=== PATIENT | male | born 1970 | race Caucasian/White ===

== ENCOUNTER 2020-04-01 13:37 | Emergency (ER) | payer OTHER, BC ==
[2020-04-01] MEDS ORDERED: HYDROmorphone 1 MG/ML 1 ML SYRINGE IVP STA (13:44)
[2020-04-01] MEDS ORDERED: SODIUM CHLORIDE 0.9% 1,000 ML IV STA (13:44)
[2020-04-01] MEDS ORDERED: DIPH,PERTUS(ACELL)TETVAC-LF 0.5 ML VIAL IM ONE (13:44)
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
[2020-04-01 14:07] LABS: Basophils # (A) 0.1 k/uL (0-0.2); Basophils % (A) 2 %; Eosinophils # (A) 0.2 k/uL (0-0.7); Eosinophils % (A) 3 %; HCT 38.6 % (39.0-53.0); HGB 12.3 gm/dL (13.0-17.5); Lymphocytes # (A) 1.9 k/uL (1.0-4.8); Lymphocytes % (A) 30 %; MCH 32.9 pg (25.0-35.0); MCHC 31.9 g/dL (31.0-37.0); MCV 103.3 fL (80.0-100.0); Macrocytosis Slight; Monocytes # (A) 0.3 k/uL (0-1.0); Monocytes % (A) 5 %; Neutrophils # (A) 3.5 k/uL (1.3-7.7); Neutrophils % (A) 57 %; Platelet Count 171 k/uL (150-450); RBC 3.74 m/uL (4.30-5.90); RDW 12.6 % (11.5-15.5); WBC 6.2 k/uL (3.8-10.6)
--- NOTE | 2020-04-01 14:08 | XR ---
EXAMINATION TYPE: XR pelvis AP view DATE OF EXAM: 04/01/2020 COMPARISON: NONE HISTORY: Pain The osseous structures are intact and the joint spaces are preserved. No acute fracture is seen. Vi sualized bowel gas pattern is nonspecific. Postsurgical change overlying the lower lumbar spine. Jameson cifications the pelvis likely vascular. Arthropathy of the hips. IMPRESSION: 1. No acute fracture.
--- NOTE | 2020-04-01 14:09 | XR ---
EXAMINATION TYPE: XR chest 1V portable DATE OF EXAM: 04/01/2020 COMPARISON: NONE HISTORY: Chest pain trauma. TECHNIQUE: Single view FINDINGS: There is no heart failure nor confluent pneumonic infiltrate. There is poor inspiration. Th ere is mild subsegmental atelectasis left lung base. There are chest leads. Bony thorax is intact. IMPRESSION: Poor inspiration. Normal heart.
[2020-04-01 14:14] LABS: Glucose,Whole Blood 127 mg/dL (75-99)
[2020-04-01 14:17] LABS: ALT 133 U/L (4-49); AST 357 U/L (17-59); African American GFR (CKD) >90 (>60 ml/min/1.73 sqM); Albumin 4.1 g/dL (3.5-5.0); Alkaline Phosphatase 57 U/L (38-126); Amylase 71 U/L (30-110); Anion Gap 12 mmol/L; Blood Urea Nitrogen 12 mg/dL (9-20); Calcium 9.2 mg/dL (8.4-10.2); Carbon Dioxide 23 mmol/L (22-30); Chloride 105 mmol/L (98-107); Glucose 139 mg/dL (74-99); Non-African American GFR(CKD) >90 (>60 ml/min/1.73 sqM); Potassium 3.5 mmol/L (3.5-5.1); Sodium 140 mmol/L (137-145); Total Bilirubin 0.8 mg/dL (0.2-1.3); Total Protein 6.6 g/dL (6.3-8.2)
[2020-04-01 14:19] LABS: Alcohol 195 mg/dL; Creatine Kinase 228 U/L (55-170)
[2020-04-01 14:22] LABS: Prothrombin Time 10.1 sec (9.0-12.0)
[2020-04-01 14:28] LABS: Partial Thromboplastin Time 19.4 sec (22.0-30.0)
[2020-04-01 14:33] LABS: Creatine Kinase MB 3.2 ng/mL (0.0-2.4); Troponin I <0.012 ng/mL (0.000-0.034)
[2020-04-01] MEDS ORDERED: DIAZEPAM 5 MG/ML 2 ML INJ IVP STA (14:40)
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
[2020-04-01] MEDS ORDERED: KETAMINE 10 MG/ML 20 ML VIAL IV ONE (15:08)
[2020-04-01] MEDS ORDERED: LIDOCAINE 1%-EPI 1:100,000 20 ML VIAL SQ STA (15:14)
--- NOTE | 2020-04-01 16:37 | XR ---
EXAMINATION TYPE: XR elbow complete RT DATE OF EXAM: 04/01/2020 COMPARISON: NONE HISTORY: Elbow pain TECHNIQUE: 3 views FINDINGS: I see no fracture nor dislocation. Joint spaces are normal. There are small densities on th e lateral aspect of the elbow that could be foreign bodies in the skin. IMPRESSION: No fracture seen. No sign of joint effusion. There are probably small millimeter foreign bodies at the lateral aspect of the elbow.
[2020-04-01] MEDS ORDERED: ONDANSETRON 4 MG/2 ML VIAL IVP STA (16:44)
[2020-04-01 17:14] VITALS: BP 103/75; PULSE 80; RESP 18; TEMP 98.7
== END 2020-04-01 17:10 | disposition home or self-care (01) ==
LOC: EC 13:37
DX: S51.011A Laceration without foreign body of right elbow, initial encounter (principal); S60.811A Abrasion of right wrist, initial encounter; S80.212A Abrasion, left knee, initial encounter; R07.81 Pleurodynia; V20.4XXA Motorcycle driver injured in collision with pedestrian or animal in traffic accident, initial encounter; Y92.89 Other specified places as the place of occurrence of the external cause
CPT/HCPCS: 99291; 96365; 96375 ×3; 90471; 36415; 86900; 86901; 80053; 82150; 82550; 82553; 83605; 83690; 84484; 85025; 85610; 85730; 86850; 80320; 72170; 73080; 71045; 72125; 70486; 70450; 71260; 74177; 90715; J3360; J2405; J0690; Q9967

== ENCOUNTER 2020-12-04 06:53 | Day surgery (SDC) | payer BC ==
[2020-11-30 14:44] VITALS: BMI 28.7
[~2020-12-04 06:53] MED LIST: LACTATED RINGERS 1,000 ML IV SCH; LIDOCAINE 1% (10MG/ML) FOR IV START INTRADERMA PRN
[2020-12-04 07:14] VITALS: TEMP 97.8
[2020-12-04] MEDS ORDERED: LACTATED RINGERS 1,000 ML IV ONE (07:14)
[2020-12-04] MEDS ORDERED: LIDOCAINE 1% (10MG/ML) FOR IV START INTRADERMA ONE (07:14)
[2020-12-04] MEDS ORDERED: PROPOFOL 10 MG/ML 20 ML VIAL IV ONE (07:41)
[2020-12-04] MEDS ORDERED: LIDOCAINE 1% INJ 10MG/ML (20 ML MDV) ONE (07:41)
[2020-12-04] MEDS ORDERED: fentaNYL (PF) 50 MCG/ML 2 ML AMP ONE (07:41)
--- NOTE | 2020-12-04 08:19 | P.PCN ---
Date of Procedure: 12/04/20 Description of Procedure: BRIEF HISTORY: Patient is a 49-year-old male presenting for outpatient colonoscopy for evaluation of rectal bleed/hemorrhage of the anus and rectum. Patient reports intermittent bright red blood per rectum with wiping and in stool. Denies any abdominal pain. Denies any family history of colon cancer. No prior colonoscopy reported. PROCEDURE PERFORMED: Colonoscopy. PREOPERATIVE DIAGNOSIS: Rectal bleed, hemorrhage of the anus and rectum, no prior colonoscopy. ESTIMATED BLOOD LOSS: Minimal. IV sedation per Anesthesia. PROCEDURE: After informed consent was obtained, the patient, was brought into the endoscopy unit. IV sedation was administered by Anesthesia under continuous monitoring. Digital rectal examination was normal. Initially the Olympus CF-190 flexible video colonoscope was then inserted in the rectum, gradually advanced into the cecum without any difficulty. Careful examination was performed as the scope was gradually being withdrawn. Ileocecal valve and the appendiceal orifice were visualized and appeared normal. Prep was excellent. Mucosa of the cecum, ascending colon, transverse colon, descending colon, sigmoid colon, and rectum appeared normal, with the terminal ileum intubated and also appearing normal. Retroflexion was performed in the rectum and no lesions were seen, low-grade internal hemorrhoids. The patient tolerated the procedure well. IMPRESSION: Normal-appearing colon from rectum to cecum and a normal-appearing terminal ileum. Internal hemorrhoids. RECOMMENDATIONS: Findings of this examination were discussed with the patient and his family. Okay to resume diet. Okay to resume medications. Recommend repeat colonoscopy in 10 years for screening for malignant neoplasm of the colon or sooner if signs or symptoms which warrant further evaluation develop. Otherwise, if patient has further hemorrhoidal bleeding recommend sitz baths, Tucks pads, and local hemorrhoidal treatment with topical steroids.
[2020-12-04 08:21] VITALS: RESP 16
[2020-12-04 08:54] VITALS: BP 138/79; PULSE 62
== END 2020-12-04 09:06 | disposition home or self-care (01) ==
LOC: ORWHC2ENDO 06:53
PROVIDERS: ATTEND Internal Medicine
DX: K62.5 Hemorrhage of anus and rectum (principal); K64.8 Other hemorrhoids; Z72.0 Tobacco use; Z79.891 Long term (current) use of opiate analgesic; Z79.899 Other long term (current) drug therapy; Z98.890 Other specified postprocedural states; I10 Essential (primary) hypertension; N40.0 Benign prostatic hyperplasia without lower urinary tract symptoms
CPT/HCPCS: 45378; J2001; J3010; J2704

== ENCOUNTER → 2023-02-05 | Outpatient (CLI) | payer BC ==
[2023-02-05 13:52] VITALS: BP 122/84; PULSE 65; RESP 18; TEMP 97.8
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
== END ==
LOC: PNWHC3 10:59
PROVIDERS: ATTEND Specialist
DX: M51.36 Other intervertebral disc degeneration, lumbar region (principal); M43.22 Fusion of spine, cervical region; I10 Essential (primary) hypertension; N40.0 Benign prostatic hyperplasia without lower urinary tract symptoms; F32.9 Major depressive disorder, single episode, unspecified; F17.210 Nicotine dependence, cigarettes, uncomplicated; Z98.49 Cataract extraction status, unspecified eye
CPT/HCPCS: 99211

== ENCOUNTER → 2023-03-09 | Outpatient (CLI) | payer BC ==
--- NOTE | 2023-03-09 11:46 | CA ---
Exercise Stress Test Report Name: Amos Mcdonald Exam Date: 03/09/2023 09:04 Exam Location: [facility] Stress Ht (in): 76 Wt (lb): 240 BSA: 2.39 Ordering Phys: Anastasiya He DO Referring Phys: CLARISSE, Technologist: Joseph Cherry Age: 52 Gender: M : 1970 Procedure CPT: Indications: I27.0 ICD-10 Codes: Patient History: Medications: Meds past 24 hrs: Pretest Chest Pain: STRESS TEST Sukhdeep Protocol Exercise Duration (min:sec): 11:[address] Depressions (mm): Angina Score: Oconnor Score: Resting HR (bpm): 67 Peak HR (bpm): 171 Resting BP (mmHg): 112 / 83 Peak BP (mmHg): 168 / 71 MPHR: 169 Target HR: 144 % MPHR: 101 METS: 12.1 Total Dose: Peak Dose: Atropine: Double Product: 77321 BP Response: Stress Termination: Reached target heart rate Stress Symptoms: NO SYMPTOMS Stress Summary: The patient's target heart rate was achieved, The hemodynamic response to exercise was normal ECG ANALYSIS Resting ECG: Sinus rhythm. Normal conduction. No arrhythmias. Normal repolarization. Stress ECG: No ECG evidence of ischemia with exercise. Ventricular premature contraction. CONCLUSIONS Normal ST segment response to stress. Good exercise tolerance Occasional single PVCs Dr. French Boyce MD (Electronically Signed) Final Date: 09 March 2023 11:45
== END | disposition home or self-care (01) ==
LOC: RADNMMAIN 08:43
PROVIDERS: ATTEND Family Medicine
DX: I27.0 Primary pulmonary hypertension (principal); R00.1 Bradycardia, unspecified
CPT/HCPCS: 93017

== ENCOUNTER → 2023-04-02 | Outpatient (CLI) | payer BC ==
[2023-04-02 15:08] VITALS: BP 121/76; PULSE 60; RESP 16; TEMP 97.9
--- NOTE | 2023-04-16 08:02 | P.PAINPG ---
PQRS Measure Charge Sheet Comment: 52 yr old male presents today w severe and chronic thoracolumbar pain secondary to DDD, spondylosis and facet arthropathy without myelopathy for medication refills. Pt states pain level is provoked at 2/10 in intensity, constant, localized in the mid to lower lumbar spine, achy in character w/o shooting pain. Pain is provoked by bending, twisting, lifting. Pain is alleviated by PT years ago, massage therapy years ago, chiropractic treatments years ago, heat, medications (Suboxone), repositioning and rest. Oswestry pain score of 12. Interventional procedures include DENIES Medications include Suboxone 8/2mg SL REVIEW OF ORGAN SYSTEMS: CONSTITUTIONAL: No fevers or chills. No recent weight loss. NEUROLOGICAL: + numbness and tingling along the distal extremities. No seizure disorders or headaches. MUSCULOSKELETAL: + pain PSYCHIATRIC: Denies current depression or suicidal thoughts. Physical Examinations : Constitutional : Cooperative , not in acute distress . Neurologic : Cranial nerve II to XII intact. No focal neurological deficits. Psychiatric : alert & oriented x 3. Matching mood & appropriate affect. Judgment & insight intact. Musculoskeletal : Cervical Spine Motor strength in the deltoid and biceps: Normal right side. Normal Left side Motor strength biceps and the wrist extensors: Normal right side . Normal left side Motor strength in the triceps muscle: Normal right side. Normal left side Deep tendon reflexes: Normal at the biceps. Normal at Brachioradialis. Normal at triceps Vertebral body tenderness to deep palpation over Cervical facet loading test: positive bilaterally Spurling test: positive bilaterally Neck distraction test: positive bilaterally Mike sign: positive bilaterally Lumbar spine Motor strength lower extremities ,thigh and legs 5/5 Right side , 5/5 Left side Deep tendon reflexes : Normal Knee Jerk. Normal Ankle Jerk Vertebral body tenderness over L4, L5 Lumbar facet Loading Test: positive Right / positive Left Range of motion of the lumbar spine Flexion 30 degrees, extension 10 degrees Straight Leg Raise test: Left/ Right positive at degree Charlie test: positive right / positive left. Severe tenderness over the Sacroiliac joint on the Right / Left sides Gaenslen test: positive bilaterally Seated flexion test: positive bilaterally. Sacral spine : Severe tenderness over the Sacroiliac joint: right side / left side Range of motion: Flexion of the lumbar spine <60 degrees Range of motion: Extension of the lumbar spine <20 degrees Gaenslen's Test positive Crow's Test positive Charlie test: positive right side / left side Thigh Thrust Test Sacral Thrust Test Assessment/ Plan : Lumbar DDD, Lumbar spondylosis Medication management. Previous provider is no longer w the practice and now has signed a narcotic agreement (02/05/23) for continuation of medication mgmt. Suboxone 8-2mg film BID # 60 w 1 RF. Use, side effects, adverse reactions and safe storage discussed. Pt acknowledged understanding. All questions answered. I have spent greater than 30 minutes on patient care today. Dr Steinberg was available by phone for the evaluation of this patient. The time was used to review the medical records including relevant urine studies and Prescription history (MAPs), review of the available imaging, evaluation and examination of the patient, coordination of care with the medical staff and if applicable referring physicians, as well as creation of the medical record PQRS Narrative: Smoking Status Current every day smoker Hx Alcohol Use (MH) Yes: occasional Home Medications: Ambulatory Orders Buprenorphine HCl/Naloxone HCl [Suboxone 8 mg-2 mg Sl Film] 1 each SL BID 11/30/20 Losartan Potassium 50 mg PO DAILY 11/30/20 Multivitamins, Thera [Multivitamin (formulary)] 1 tab PO DAILY 11/30/20 QUEtiapine [SEROquel] 75 mg PO HS 11/30/20 Tamsulosin [Flomax] 0.4 mg PO PC-SUPPER 11/30/20 Buprenorphine/Naloxone 8Mg/2Mg [Suboxone 8-2Mg Film] 1 film SL BID 30 Days #60 f ilm 02/05/23 Buprenorphine/Naloxone 8Mg/2Mg [Suboxone 8-2Mg Film] 1 film SL BID 30 Days #60 film 04/02/23 Controlled Substance Measures - Controlled Substance Measures Is patient prescribed a controlled substance at discharge?: Yes When asked, does pt state using other controlled substances?: Yes If prescribed controlled substance>3 days was MAPS reviewed?: Yes
== END ==
LOC: PNWHC3 14:08
PROVIDERS: ATTEND Specialist
DX: M51.36 Other intervertebral disc degeneration, lumbar region (principal); M47.816 Spondylosis without myelopathy or radiculopathy, lumbar region; F17.200 Nicotine dependence, unspecified, uncomplicated
CPT/HCPCS: 80307; 99212

== ENCOUNTER → 2023-05-28 | Outpatient (CLI) | payer BC ==
[2023-05-28 14:21] VITALS: BP 124/83; PULSE 61; RESP 16; TEMP 97.7
--- NOTE | 2023-05-28 15:02 | P.PAINPG ---
PQRS Measure Charge Sheet Comment: 52 yr old male presents today w severe and chronic thoracolumbar pain secondary to DDD, spondylosis and facet arthropathy without myelopathy for medication refills. Pt states pain level is provoked at 6/10 in intensity, constant, localized in the mid to lower lumbar spine, achy in character w/o shooting pain. Pain is provoked by bending, twisting, lifting. Pain is alleviated by PT years ago, massage therapy years ago, chiropractic treatments years ago, heat, medications (Suboxone), repositioning and rest. Last UDS from 04/02/23 +ETOH metabolites. Discussed dangers of alcohol and suboxone use. Urged compliance w narcotic agreement, however pt stated he will be positive for ETOH again if we recheck UDS today. Pt refuses to cooperate w terms of narcotics agreement so will be discharged to seek another prescribing facility. Interventional procedures include DENIES Medications include Suboxone 8/2mg SL REVIEW OF ORGAN SYSTEMS: CONSTITUTIONAL: No fevers or chills. No recent weight loss. NEUROLOGICAL: + numbness and tingling along the distal extremities. No seizure disorders or headaches. MUSCULOSKELETAL: + pain PSYCHIATRIC: Denies current depression or suicidal thoughts. Physical Examinations : Constitutional : Cooperative , not in acute distress . Neurologic : Cranial nerve II to XII intact. No focal neurological deficits. Psychiatric : alert & oriented x 3. Matching mood & appropriate affect. Judgment & insight intact. Musculoskeletal : Cervical Spine Motor strength in the deltoid and biceps: Normal right side. Normal Left side Motor strength biceps and the wrist extensors: Normal right side . Normal left side Motor strength in the triceps muscle: Normal right side. Normal left side Deep tendon reflexes: Normal at the biceps. Normal at Brachioradialis. Normal at triceps Vertebral body tenderness to deep palpation over Cervical facet loading test: positive bilaterally Spurling test: positive bilaterally Neck distraction test: positive bilaterally Mike sign: positive bilaterally Lumbar spine Motor strength lower extremities ,thigh and legs 5/5 Right side , 5/5 Left side Deep tendon reflexes : Normal Knee Jerk. Normal Ankle Jerk Vertebral body tenderness over L4, L5 Lumbar facet Loading Test: positive Right / positive Left Range of motion of the lumbar spine Flexion 30 degrees, extension 10 degrees Straight Leg Raise test: Left/ Right positive at degree Charlie test: positive right / positive left. Severe tenderness over the Sacroiliac joint on the Right / Left sides Gaenslen test: positive bilaterally Seated flexion test: positive bilaterally. Sacral spine : Severe tenderness over the Sacroiliac joint: right side / left side Range of motion: Flexion of the lumbar spine <60 degrees Range of motion: Extension of the lumbar spine <20 degrees Gaenslen's Test positive Crow's Test positive Charlie test: positive right side / left side Thigh Thrust Test Sacral Thrust Test Assessment/ Plan : Lumbar DDD, Lumbar spondylosis Medication management. To recheck UDS today 05/28/23. Suboxone 8-2mg film BID # 60 w No Refill. Discharge paperwork provided to pt for violation of narcotics agreement. Use, side effects, adverse reactions and safe storage discussed. Pt acknowledged understanding. All questions answered. I have spent greater than 30 minutes on patient care today. Dr Steinberg was available by phone for the evaluation of this patient. The time was used to review the medical records including relevant urine studies and Prescription history (MAPs), review of the available imaging, evaluation and examination of the patient, coordination of care with the medical staff and if applicable referring physicians, as well as creation of the medical record - Pain Location Bilateral Lower Back Pharmacological Interventions: Scheduled Medication PQRS Narrative: Smoking Status Current every day smoker Hx Alcohol Use (MH) Yes: occasional Home Medications: Ambulatory Orders Buprenorphine HCl/Naloxone HCl [Suboxone 8 mg-2 mg Sl Film] 1 each SL BID 11/30/20 Losartan Potassium 50 mg PO DAILY 11/30/20 Multivitamins, Thera [Multivitamin (formulary)] 1 tab PO DAILY 11/30/20 QUEtiapine [SEROquel] 75 mg PO HS 11/30/20 Tamsulosin [Flomax] 0.4 mg PO PC-SUPPER 11/30/20 Buprenorphine/Naloxone 8Mg/2Mg [Suboxone 8-2Mg Film] 1 film SL BID 30 Days #60 film 04/02/23 Levothyroxine Sodium 25 mcg PO 04/02/23 Testosterone Cypionate [Depo-Testosterone] 200 mg IM 04/02/23 Buprenorphine/Naloxone 8Mg/2Mg [Suboxone 8-2Mg Film] 1 film SL BID 30 Days #60 film 05/28/23 Buprenorphine/Naloxone 8Mg/2Mg [Suboxone 8-2Mg Film] 1 film SL BID 30 Days #60 film 05/28/23 Controlled Substance Measures - Controlled Substance Measures Is patient prescribed a controlled substance at discharge?: Yes When asked, does pt state using other controlled substances?: Yes If prescribed controlled substance>3 days was MAPS reviewed?: Yes
== END ==
LOC: PNWHC3 13:54
PROVIDERS: ATTEND Specialist
DX: M51.36 Other intervertebral disc degeneration, lumbar region (principal); M47.816 Spondylosis without myelopathy or radiculopathy, lumbar region; F17.200 Nicotine dependence, unspecified, uncomplicated
CPT/HCPCS: 99211